=== PATIENT | female | born 1955 | race Caucasian/White ===

== ENCOUNTER 2025-04-27 10:57 | Emergency (ER) | payer OTHER, SELFPAY ==
[2025-04-27 11:13] VITALS: BP 144/98
--- NOTE | 2025-04-27 13:27 | ED.GENMED ---
History of Present Illness
General
Chief Complaint: Abdominal Symptoms
Source: patient
Exam Limitations: none
Time Seen by Provider: 04/27/25 13:26
Nursing documentation reviewed up to this point in time: agreed with
History of Present Illness
History of Present Illness:
70-year-old female with history of TIA, ex smoker, CHF, HTN, ulcerative colitis, C. difficile, GI bleed, pacemaker/defibrillator, Sjogren syndrome w past medical history of Clostridioides difficile (C. diff) infection three years ago, presenting
with diarrhea that has persisted for approximately 15 days. She reports that the symptoms began with mild gastrointestinal discomfort, initially perceived as gas, followed by episodes of diarrhea that have since intensified. Currently, she
experiences diarrhea about eight times per day and five times each night. The severity of the symptoms increased, with notable rectal bleeding occurring last night, where she described passing approximately a quarter cup of blood on two occasions.
She was previously tested for C. diff and the results were negative, approximately a week ago, through her PCP at [facility] after returning from a beach vacation where the symptoms began.
The patient also notes an associated decrease in appetite, consuming only half a piece of toast today. She denies nausea, fever, and recent antibiotic use. She acknowledges exposure to her son and two grandchildren, who recently displayed symptoms
of a stomach virus accompanied by fever and diarrhea, abd discomfort, no significant pain but does get the crampy discomfort prior to the diarrhea.
She spoke with her GI doctor Elsy at [facility] and was told ok to take Loperimide which she did 3 doses 3 days ago and 2 doses yesterday but stopped when she noted blood in her stools yesterday
Past History
Past History
ED Past Medical History: Arrthythmia, Asthma, CAD, CHF, HTN, Hypercholesterolemia and Other (left bundle branch block, uterine fibroids)
ED Past Surgical History: Cardiac (Stents, Pacer. defibulator) and Other (SEPTOPLASTY 2002; ENDOSCOPIC SINUS SURGERY; D+C; REMOVAL OF UTERINE FIBROIDS; SKIN CA R THIGH REMOVED 1959; pacemaker/defib 2013)
Social History
Tobacco: Former smoker
Alcohol: Occasional
Personal:
Living: with family
Review of Systems
Review of Systems
Allergies reviewed?: Yes
All Other Systems: ROS reviewed and negative except as documented in HPI and ROS
Phy Exam
Physical Exam
Physical Exam:
GENERAL: No acute distress. A&Ox3.
CONSTITUTIONAL: Afebrile.
EYES: clear, conjunctivae normal
ENMT: moist mucus membranes, Pharynx nl
RESPIRATORY: Regular respirations, nonlabored, lungs clear.
CARDIOVASCULAR: Regular rate and rhythm, no murmurs, no rubs.
GI: Soft, generally mildly tender, normal BS
MUSCULOSKELETAL: Moves with ease. Well perfused.
SKIN: Warm, dry, pink
PSYCH: Normal mood and affect. Well kept, interactive and appropriate
NEUROLOGIC: Awake, alert and oriented. No focal neurological deficits
Course
Orders/Labs/Results
Orders:
Orders
04/27/25 13:42
CT Abd/pel W Iv And Oral Contr Urgent
Comment:
Reason For Exam: gen abd discomfort, bloody diarrhea
Iohexol [Omnipaque] See Protocol PO NOW STA
04/27/25 13:43
0.9% Sodium Chloride 1000 ml [Nss] 1,000 ml IV BOLUS
04/27/25 13:55
Complete Blood Count/With Diff Urgent
Comprehensive Metabolic Panel Urgent
04/27/25 15:24
STOOL [C difficile Antigen & Toxins] Urgent
SARI Source: Feces/Stool
Specimen Description:
Date Specimen was Collected: 04/27/25
Time Specimen was Collected: 15:20
Stool Culture Urgent
SARI Source: Feces/Stool
Specimen Description:
Date Specimen was Collected: 04/27/25
Time Specimen was Collected: 15:20
04/27/25 18:27
Potassium Chloride [KCl] 40 meq PO NOW STA
Abnormal Lab Results
04/27/25
13:55
Absolute Neuts (auto) 8.3 H 10^3/uL
(1.4-6.5)
Absolute Monos (auto) 1.0 H 10^3/uL
(0.1-0.6)
Neutrophils % 77.3 H %
(42.2-75.2)
Lymphocytes % 12.7 L %
(20.5-51.1)
Potassium 3.2 L mmol/L
(3.5-5.1)
Total Bilirubin 1.4 H mg/dl
(0.2-1.3)
Total Protein 6.2 L g/dl
(6.3-8.2)
04/27/25 13:55
04/27/25 13:55
Vital Signs
Initial and Last Documented VS:
Initial Vital Signs
Temp Pulse Resp BP Pulse Ox
98.1 F 83 18 144/98 95
04/27/25 11:13 04/27/25 11:13 04/27/25 11:13 04/27/25 11:13 04/27/25 11:13
Last Documented Vital Signs
Temp Pulse Resp BP Pulse Ox
98.1 F 64 18 134/69 95
04/27/25 11:13 04/27/25 18:36 04/27/25 18:36 04/27/25 18:36 04/27/25 18:36
MDM/Problems Addressed
Differential Diagnosis Includes:
Bacterial versus viral versus parasitic gastroenteritis, colitis,
MDM/Problems Addressed:
70-year-old female with history of TIA, ex smoker, CHF, HTN, ulcerative colitis, C. difficile, UC w GI bleed, pacemaker/defibrillator, Sjogren syndrome w past medical history of Clostridioides difficile (C. diff) infection three years ago,
presenting with diarrhea that has persisted for approximately 15 days. She reports that the symptoms began with mild gastrointestinal discomfort, initially perceived as gas, followed by episodes of diarrhea that have since intensified. Currently,
she experiences diarrhea about eight times per day and five times each night. The severity of the symptoms increased, with notable rectal bleeding occurring last night, where she described passing approximately a quarter cup of blood on two
occasions. She was previously tested for C. diff and the results were negative, approximately a week ago, through her PCP at [facility] after returning from a beach vacation where the symptoms began.
The patient also notes an associated decrease in appetite, consuming only half a piece of toast today. She denies nausea, fever, and recent antibiotic use. She acknowledges exposure to her son and two grandchildren, who recently displayed symptoms
of a stomach virus accompanied by fever and diarrhea, abd discomfort, no significant pain but does get the crampy discomfort prior to the diarrhea.
She spoke with her GI doctor Elsy at [facility] and was told ok to take Loperimide which she did 3 doses 3 days ago and 2 doses yesterday but stopped when she noted blood in her stools yesterday
She did start her Methylamine 2.4 gms daily this past week.
2:30 PM:
CBC with no clinically significant abnormality
CMP with mild hypokalemia with potassium 3.2 otherwise normal
Cdiff neg
5:45 PM: CT abdomen pelvis with p.o. and IV contrast radiology report read: IMPRESSION: Findings suggesting moderate colitis. New
Mild diverticulosis. No evidence of acute diverticulitis.
There is moderate circumferential wall thickening of the rectum and severe circumferential wall thickening of the sigmoid colon suggesting colitis.
Gallstones. Increased in size. Stable mild gallbladder wall thickening and enhancement. If concerned of acute cholecystitis, abdominal ultrasound recommended.
Left adrenal nodule. Stable from 2020 suggesting this likely a benign adrenal adenoma. This could further be evaluated by MR examination if indicated clinically
Too small to characterize hypodense splenic lesion likely a small cyst or hemangioma. Stable
findings suggesting pelvic congestion syndrome stable
Copy of CT report given to patient
6:00 PM:
Patient will be given a dose of potassium here
Dr. Diaz in to examine patient offered admission
With normal labs, no sign of infection or significant bleeding, patient is very comfortable, she wants to go home. This is reasonable. We will tell her to hold her Eliquis for 2 days and follow-up with her [facility] doctor on Wednesday after the
holiday weekend. Continue Mesalamine, She understands return instructions.
*Pulse Oximetry
SaO2: 95
Oxygen Mode of Delivery: Room air
Patient hypoxic: not evaluated
*Critical Care Note
Total Time (30-74mins, 75-104mins- exclusive of procedures): Not Applicable
ED Attending Note
-
Portions of this chart may have been created with voice recognition software.� Occasional wrong word or��sound alike� substitutions may have occurred due to the inherent limitations of voice recognition software.
Discharge Plan
Departure
Patient Disposition: Home (Routine Discharge)
Date of Disposition: 04/27/25
Time of Disposition: 18:25
Patient with high blood pressure during this ER visit?: No
Condition: Good
Discharge Problem:
Ulcerative colitis
Instructions: Ulcerative colitis in adults, Clear Liquid Diet
Prescriptions:
No Action
rosuvastatin 5 MG tablet
5 mg PO DAILY
Entresto 1 EACH tablet
1 ea PO DAILY
Entresto 1 EACH tablet
0.5 tab PO 1600
mesalamine 500 mg Suppository
1 g MT HS
potassium 99 mg Tablet
400 mg PO BID
Xarelto 20 mg Tablet
20 mg PO QPM
vancomycin 250 mg/2.5 mL Syringe
250 mg PO BID
Referrals:
Your [facility] [Other] - Follow up in 2-3 days
Lisa Felix DO [Family Provider, Family Practice]
Activity Restrictions/Additional Instructions:
As we discussed, hold your Eliquis for 2 days
Contact your [facility] doctor on Wednesday regarding today's visit.
Return here immediately for worse bleeding, fever, vomiting, worsening pain or feeling sicker in any way
Continue your mesalamine
Your potassium was 3.2 here today and you were given a dose of potassium
Interventions
Interventions:
*Risk Screen - Suicide Last Done: 04/27/25 11:13
*General Assessment Last Done: 04/27/25 13:59
*Neglect/Abuse Screening Last Done: 04/27/25 13:59
*ED- Fall Risk Assessment Last Done: 04/27/25 13:59
*ED COVID-19 Vaccine History Last Done: 04/27/25 13:59
*Nursing Disposition Last Done: 04/27/25 18:45
RZ-[id number]-[id number] Assessment Last Done: 04/27/25 13:59
Discharge Date and Time
Discharge Date/Time: 04/27/25 18:45
Print Language: [id number]
[2025-04-27] MEDS: OMNIPAQUE 50 ML PO (13:53)
[2025-04-27] MEDS: NSS 1000 IV (13:54)
[2025-04-27 13:55] VITALS: BMI 20.7
[2025-04-27 13:58] VITALS: BP 114/80
[2025-04-27 14:14] LABS: Hematocrit 38.1 % (37.0-47.0); Hemoglobin 12.8 g/dL (12.0-16.0); Mean Corp Hgb Conc. 33.6 g/dL (33.0-37.0); Mean Corpuscular Volume 86.4 fL (81.0-99.0); Nucleated Red Blood Cells % 0 %; Platelet Count 223 10^3/uL (130-400); Red Cell Dist. Width 13.5 % (11.5-14.5)
[2025-04-27 14:36] LABS: ALT (SGPT) 15 U/L (0-35); AST (SGOT) 22 U/L (14-36); Albumin 3.9 g/dl (3.5-5.0); Alkaline Phosphatase 60 U/L (38-126); Blood Urea Nitrogen 10 mg/dl (7-17); Calcium 8.5 mg/dl (8.4-10.2); Carbon Dioxide 28 mmol/L (22-30); Chloride 103 mmol/L (98-107); Estimated Creatinine Clearance 79 ml/min; Glucose 80 mg/dl (70-99); Potassium 3.2 mmol/L (3.5-5.1); Sodium 136 mmol/L (135-145); Total Protein 6.2 g/dl (6.3-8.2); eGFR > 60.00
[2025-04-27 16:26] VITALS: BP 135/71
[2025-04-27] MEDS: KCL 40 MEQ PO (18:34)
[2025-04-27 18:36] VITALS: BP 134/69
== END 2025-04-27 18:45 | disposition home or self-care (01) ==
LOC: EMR 10:57
PROVIDERS: Registered Nurse; EMERGENCY PHYSICIAN Emergency Medicine; FAMILY PHYSICIAN Family Medicine
DX: K51.911 Ulcerative colitis, unspecified with rectal bleeding (principal); E87.6 Hypokalemia; I11.0 Hypertensive heart disease with heart failure; I50.9 Heart failure, unspecified; I25.10 Atherosclerotic heart disease of native coronary artery without angina pectoris; J45.909 Unspecified asthma, uncomplicated; Z95.5 Presence of coronary angioplasty implant and graft; Z95.0 Presence of cardiac pacemaker; Z87.891 Personal history of nicotine dependence
CPT/HCPCS: 99284; 74177; 80053; 85025; 87045; 87046; 87077; 87324; 87427; 87449; Q9967